=== PATIENT | female | born 1975 | race Caucasian/White ===

== ENCOUNTER 2017-04-17 23:59 | Emergency (ER) | payer MEDICAID, OTHER ==
[2017-04-18] MEDS ORDERED: Sodium Chloride 0.9% 1,000 ML IV ONE (02:00)
--- NOTE | 2017-04-18 02:27 | EDM.PDOCBH ---
<Sj Campbell - Last Filed: 04/18/17 02:22> ED HPI GENERAL MEDICAL PROBLEM - General Chief Complaint: Behavioral/Psych Stated Complaint: EVAL Time Seen by Provider: 04/18/17 00:39 Source of Information: Reports: Patient, Other (Friends and neighbors) History Limitations: Reports: Intoxication - History of Present Illness INITIAL COMMENTS - FREE TEXT/NARRATIVE: This lady was brought to the ER by a neighbor and another friend. She has been drinking heavily for a few days and has made multiple threats to kill herself. She said she hates her life and wants to . She has been treated with antidepressants in the past. About 3 weeks ago she cut her left wrist. Previously she tried to strangle herself but that was sometime in the past. The patient would not answer questions about how much she had drunk tonight. She denied using any kind of drugs - Related Data Allergies Allergy/AdvReac Type Severity Reaction Status Date / Time No Known Allergies Allergy Verified 04/18/17 01:01 Home Meds: Home Meds NK [No Known Home Meds] 09/11/15 [History] Past Medical History HEENT History: Reports: Impaired Vision Respiratory History: Reports: Bronchitis, Recurrent Gastrointestinal History: Reports: Colon Polyp, GERD, Hemorrhoids ADJUNCT NURSING FACULTY History: Reports: Polycystic Ovaries, , Therapeutic Neurological History: Reports: Concussion, Headaches, Chronic, Migraines Psychiatric History: Reports: ADD, ADHD, Depression, Psych Hospitalization(s), Suicide Attempt, Suicidal Ideation, Other (See Below) Other Psychiatric History: nanic depressive, family hx of schizophrenia - Past Surgical History HEENT Surgical History: Reports: Adenoidectomy, Oral Surgery, Tonsillectomy GI Surgical History: Reports: Appendectomy Female Surgical History: Reports: Tubal Ligation Musculoskeletal Surgical History: Reports: Carpal Tunnel Social & Family History - Tobacco Use Smoking Status *Q: Current Every Day Smoker Years of Tobacco use: 22 Packs/Tins Daily: 1.5 Used Tobacco, but Quit: No Second Hand Smoke Exposure: Yes - Caffeine Use Caffeine Use: Reports: Soda - Alcohol Use Days Per Week of Alcohol Use: 6 Number of Drinks Per Day: 8 Total Drinks Per Week: 48 - Recreational Drug Use Recreational Drug Use: No Recreational Drug Type: Reports: Marijuana/Hashish ED ROS GENERAL - Review of Systems Review Of Systems: Unable To Obtain ED EXAM, BEHAVIORAL HEALTH - Physical Exam Exam: See Below Exam Limited By: Intoxication General Appearance: Alert, Other (This lady seems very intoxicated. At times she is crying loudly at other times she is cursing. There is a heavy alcohol odor) Eye Exam: Bilateral Eye: Conjunctival Injection, EOMI, PERRL Throat/Mouth: Normal Inspection Head: Atraumatic Neck: Normal Inspection Respiratory/Chest: Lungs Clear Cardiovascular: Regular Rate, Rhythm GI/Abdominal: Non-Tender Extremities: Other (There is a small laceration approximately 2.5 cm long to the ventral surface of the left wrist. It appears consistent with a history of slitting her wrist 3 weeks ago) Neurological: Alert (But very intoxicated.), CN II-XII Intact, No Motor/Sensory Deficits Psychiatric: Other Skin Exam: Warm (As above), Dry COURSE, BEHAVIORAL HEALTH COMP - Course Vital Signs: Last Vital Signs Temp 97.5 F 04/18/17 03:48 Pulse 94 04/18/17 11:08 Resp 16 04/18/17 11:08 BP 122/68 04/18/17 11:08 Pulse Ox 97 04/18/17 11:08 Orders, Labs, Meds: Laboratory Tests 04/18/17 04/18/17 04/18/17 Range/Units 00:21 00:21 00:21 WBC 10.3 (4.5-11.0) K/uL RBC 4.93 (3.30-5.50) M/uL Hgb 15.2 H D (12.0-15.0) g/dL Hct 44.0 (36.0-48.0) % MCV 89 (80-98) fL MCH 31 (27-31) pg MCHC 35 (32-36) % Plt Count 309 (150-400) K/uL Neut % (Auto) 69 H (36-66) % Lymph % (Auto) 20 L (24-44) % Emmet % (Auto) 10 H (2-6) % Eos % (Auto) 1 L (2-4) % Baso % (Auto) 0 (0-1) % Sodium 136 L (140-148) mmol/L Potassium 3.8 (3.6-5.2) mmol/L Chloride 100 (100-108) mmol/L Carbon Dioxide 26 (21-32) mmol/L Anion Gap 13.8 (5.0-14.0) mmol/L BUN 9 (7-18) mg/dL Creatinine 0.6 (0.6-1.0) mg/dL Est Cr Clr Drug Dosing 89.53 mL/min Estimated GFR (MDRD) > 60 (>60) Glucose 96 (74-106) mg/dL Calcium 8.8 (8.5-10.1) mg/dL Total Bilirubin 0.2 (0.2-1.0) mg/dL AST 21 (15-37) U/L ALT 32 (12-78) U/L Alkaline Phosphatase 162 H (46-116) U/L Total Protein 7.0 (6.4-8.2) g/dL Albumin 3.7 (3.4-5.0) g/dL Globulin 3.3 (2.3-3.5) g/dL Albumin/Globulin Ratio 1.1 L (1.2-2.2) Salicylates (2.0-20.0) mg/dL Urine Opiates Screen (NEGATIVE) Ur Oxycodone Screen (NEGATIVE) Urine Methadone Screen (NEGATIVE) Ur Propoxyphene Screen (NEGATIVE) Acetaminophen (10.0-30.0) ug/mL Ur Barbiturates Screen (NEGATIVE) Ur Tricyclics Screen (NEGATIVE) Ur Phencyclidine Scrn (NEGATIVE) Ur Amphetamine Screen (NEGATIVE) U Methamphetamines Scrn (NEGATIVE) Urine MDMA Screen (NEGATIVE) U Benzodiazepines Scrn (NEGATIVE) U Cocaine Metab Screen (NEGATIVE) U Marijuana (THC) Screen (NEGATIVE) Ethyl Alcohol 190 mg/dL 04/18/17 04/18/17 04/18/17 Range/Units 00:21 00:21 00:26 WBC (4.5-11.0) K/uL RBC (3.30-5.50) M/uL Hgb (12.0-15.0) g/dL Hct (36.0-48.0) % MCV (80-98) fL MCH (27-31) pg MCHC (32-36) % Plt Count (150-400) K/uL Neut % (Auto) (36-66) % Lymph % (Auto) (24-44) % Emmet % (Auto) (2-6) % Eos % (Auto) (2-4) % Baso % (Auto) (0-1) % Sodium (140-148) mmol/L Potassium (3.6-5.2) mmol/L Chloride (100-108) mmol/L Carbon Dioxide (21-32) mmol/L Anion Gap (5.0-14.0) mmol/L BUN (7-18) mg/dL Creatinine (0.6-1.0) mg/dL Est Cr Clr Drug Dosing mL/min Estimated GFR (MDRD) (>60) Glucose (74-106) mg/dL Calcium (8.5-10.1) mg/dL Total Bilirubin (0.2-1.0) mg/dL AST (15-37) U/L ALT (12-78) U/L Alkaline Phosphatase (46-116) U/L Total Protein (6.4-8.2) g/dL Albumin (3.4-5.0) g/dL Globulin (2.3-3.5) g/dL Albumin/Globulin Ratio (1.2-2.2) Salicylates 6.6 (2.0-20.0) mg/dL Urine Opiates Screen Negative (NEGATIVE) Ur Oxycodone Screen Negative (NEGATIVE) Urine Methadone Screen Negative (NEGATIVE) Ur Propoxyphene Screen Negative (NEGATIVE) Acetaminophen 0.0 L (10.0-30.0) ug/mL Ur Barbiturates Screen Negative (NEGATIVE) Ur Tricyclics Screen Negative (NEGATIVE) Ur Phencyclidine Scrn Negative (NEGATIVE) Ur Amphetamine Screen Negative (NEGATIVE) U Methamphetamines Scrn Negative (NEGATIVE) Urine MDMA Screen Negative (NEGATIVE) U Benzodiazepines Scrn Negative (NEGATIVE) U Cocaine Metab Screen Negative (NEGATIVE) U Marijuana (THC) Screen Negative (NEGATIVE) Ethyl Alcohol mg/dL Medications Discontinued Medications Generic Name Dose Route Start Last Admin Trade Name Freq PRN Reason Stop Dose Admin Sodium Chloride 1,000 mls @ 999 mls/hr 04/18/17 02:00 04/18/17 02:00 Normal Saline IV 04/18/17 03:00 999 mls/hr .BOLUS ONE Administration Re-Assessment/Re-Exam: This patient said several times that she wanted to kill herself though she didn' t describe how she was planning to do it. This lady is quite intoxicated right now. Since she is at risk of leaving the emergency department at any time and this would be detrimental to her I have gone ahead and written a 72 hour hold to ensure that she can be kept here until in the morning when she florecita up and she can be evaluated by a member of the crisis team Departure - Departure Disposition: Home, Self-Care 01 Clinical Impression: Depressive disorder, Alcohol abuse - Discharge Information Instructions: Alcohol Use Disorder Referrals: PCP,None [Primary Care Provider] - Forms: ED Department Discharge Care Plan Goals: Avoid alcohol use especially in the near future. Continue your current medications and get your psychiatric help as planned. Return to ER if worsening or concerns. <Sebastián Yeager - Last Filed: 04/19/17 08:17> COURSE, BEHAVIORAL HEALTH COMP - Course Re-Assessment/Re-Exam: 10:08 AM Patient woke up. She admits she is drinking almost daily. She is also having trouble with waiting for her response to her medications. She now is unsure if she would hurt yourself but she is frustrated that the medications don't seem to be working. She was offered detox at [facility]. She is going to discuss this with her family and friend. 4:07 PM Patient declined detox but wanted psychiatric help. The crisis intervention line was called, and metal finish inspector came and spent a good amount of time with the patient and they worked out a plan. She is going to have a follow-up appointment in 2 days. She denies any intent on self-harm and signed to treatment plan. Her friends went to the department and removed the alcohol. Departure - Departure Time of Disposition: 16:28 Condition: Fair
[2017-04-18 11:08] VITALS: BP 122/68
== END 2017-04-18 16:28 | disposition home or self-care (01) ==
LOC: JP.ED 23:59
DX: F32.9 Major depressive disorder, single episode, unspecified (principal); F10.120 Alcohol abuse with intoxication, uncomplicated; S61.512A Laceration without foreign body of left wrist, initial encounter; F17.210 Nicotine dependence, cigarettes, uncomplicated; X78.9XXA Intentional self-harm by unspecified sharp object, initial encounter
CPT/HCPCS: 36415; 80053; 80305; 85025; 96360; 99285; G0480; J7040

== ENCOUNTER 2017-05-22 15:08 | Emergency (ER) | payer OTHER ==
[2017-05-22 15:30] VITALS: BP 114/59
--- NOTE | 2017-05-22 15:42 | EDM.PDOC ---
ED HPI GENERAL MEDICAL PROBLEM - General Chief Complaint: Neck Problem Stated Complaint: NECK/UPPER BACK PAIN & SWELLING Time Seen by Provider: 05/22/17 15:35 Source of Information: Reports: Patient, Family, RN Notes Reviewed History Limitations: Reports: No Limitations - History of Present Illness INITIAL COMMENTS - FREE TEXT/NARRATIVE: 42-year-old female presents emergency department day complaint of neck pain, she states she slipped on her neck wrong about 3 days ago has had neck stiffness has sought out behavioral health care manager with some relief she is seeking muscle relaxants no fevers no nausea vomiting no difficulty with arm movements Neck Pain Score (Numeric/FACES): 5 - Related Data Allergies Allergy/AdvReac Type Severity Reaction Status Date / Time No Known Allergies Allergy Verified 04/18/17 01:01 Home Meds: Home Meds NK [No Known Home Meds] 09/11/15 [History] Past Medical History HEENT History: Reports: Impaired Vision Respiratory History: Reports: Bronchitis, Recurrent Gastrointestinal History: Reports: Colon Polyp, GERD, Hemorrhoids PALM AND BACK 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 History: Reports: Polycystic Ovaries, , Therapeutic Neurological History: Reports: Concussion, Headaches, Chronic, Migraines Psychiatric History: Reports: ADD, ADHD, Depression, Psych Hospitalization(s), Suicide Attempt, Suicidal Ideation, Other (See Below) Other Psychiatric History: nanic depressive, family hx of schizophrenia - Infectious Disease History Infectious Disease History: Reports: Chicken Pox - Past Surgical History HEENT Surgical History: Reports: Adenoidectomy, Oral Surgery, Tonsillectomy GI Surgical History: Reports: Appendectomy Female Surgical History: Reports: Tubal Ligation Musculoskeletal Surgical History: Reports: Carpal Tunnel Dermatological Surgical History: Reports: None Social & Family History - Tobacco Use Smoking Status *Q: Current Every Day Smoker Years of Tobacco use: 22 Packs/Tins Daily: 1.5 Used Tobacco, but Quit: No Second Hand Smoke Exposure: Yes - Caffeine Use Caffeine Use: Reports: Soda - Alcohol Use Days Per Week of Alcohol Use: 6 Number of Drinks Per Day: 8 Total Drinks Per Week: 48 - Recreational Drug Use Recreational Drug Use: No Recreational Drug Type: Reports: Marijuana/Hashish ED ROS GENERAL - Review of Systems Review Of Systems: See Below Constitutional: Reports: No Symptoms Musculoskeletal: Reports: Neck Pain Skin: Reports: No Symptoms Neurological: Reports: No Symptoms ED EXAM, UPPER BACK/NECK PAIN - Physical Exam Exam: See Below Text/Narrative:: Examination of the neck, I don't appreciate any point tenderness spinally or paraspinally she has limited range of motion of the neck secondary to pain there is no cervical lymphadenopathy no erythema noted full range of motion upper extremities Exam Limited By: No Limitations General Appearance: Alert, WD/WN, No Apparent Distress Course - Vital Signs Last Recorded V/S: Last Vital Signs Temp 96.9 F 05/22/17 15:20 Pulse 85 05/22/17 15:20 Resp 16 05/22/17 15:20 BP 114/59 L 05/22/17 15:20 Pulse Ox 99 05/22/17 15:20 Departure - Departure Time of Disposition: 15:41 Disposition: Home, Self-Care 01 Condition: Good Clinical Impression: Neck muscle strain Qualifiers: Encounter type: initial encounter Qualified Code(s): S16.1XXA - Strain of muscle, fascia and tendon at neck level, initial encounter - Discharge Information Referrals: Marcy Acuna PA [Primary Care Provider] - Additional Instructions: Continue to use ibuprofen for baseline pain control, use Flexeril as needed for muscle spasms, Please followup with your primary care provider in 3-5 days if not better, please call return to the emergency department with worsening of symptoms. - Assessment/Plan Plan: Assessment Acuity = acute Site and laterality = neck strain Etiology = secondary to sleeping position Manifestations = pain Location of injury = Home Lab values = none Plan Prescription written for Flexeril 1 tablet by mouth 3 times a day when necessary total #15 follow-up with primary care in 3-5 days if not better Patient was in agreement with the plan all questions were answered, they were instructed to return to the emergency department or call for worsening symptoms. This note was dictated using [employer] voice recognition software please call with any questions.
== END 2017-05-22 15:51 | disposition home or self-care (01) ==
LOC: JP.ED 15:08
DX: S16.1XXA Strain of muscle, fascia and tendon at neck level, initial encounter (principal); F17.210 Nicotine dependence, cigarettes, uncomplicated; W01.0XXA Fall on same level from slipping, tripping and stumbling without subsequent striking against object, initial encounter
CPT/HCPCS: 99283

== ENCOUNTER 2018-12-01 21:56 | Emergency (ER) | payer MEDICAID, OTHER ==
[2018-12-01 22:57] VITALS: BP 112/48
--- NOTE | 2018-12-02 01:20 | EDM.PDOC ---
ED HPI GENERAL MEDICAL PROBLEM - General Chief Complaint: Genitourinary Problem Stated Complaint: ILLNESS Time Seen by Provider: 12/01/18 23:59 Source of Information: Reports: Patient History Limitations: Reports: No Limitations - History of Present Illness INITIAL COMMENTS - FREE TEXT/NARRATIVE: This patient comes in because of swelling in the vaginal area for the past 3 days. She wants to be tested for STDs. She took some kind of an antibiotic today. She said in the past she had some kind of a cyst in the area anterior to this. She never had a periurethral abscess. Vaginal Pain Score (Numeric/FACES): 8 - Related Data Allergies Allergy/AdvReac Type Severity Reaction Status Date / Time No Known Allergies Allergy Verified 12/01/18 22:58 Home Meds: Home Meds NK [No Known Home Meds] 09/11/15 [History] Past Medical History HEENT History: Reports: Impaired Vision Respiratory History: Reports: Bronchitis, Recurrent Gastrointestinal History: Reports: Colon Polyp, GERD, Hemorrhoids MANAGER MANAGING History: Reports: Polycystic Ovaries, , Therapeutic Neurological History: Reports: Concussion, Headaches, Chronic, Migraines Psychiatric History: Reports: ADD, ADHD, Depression, Psych Hospitalization(s), Suicide Attempt, Suicidal Ideation, Other (See Below) Other Psychiatric History: nanic depressive, family hx of schizophrenia - Infectious Disease History Infectious Disease History: Reports: Chicken Pox - Past Surgical History HEENT Surgical History: Reports: Adenoidectomy, Oral Surgery, Tonsillectomy GI Surgical History: Reports: Appendectomy Female Surgical History: Reports: Tubal Ligation Musculoskeletal Surgical History: Reports: Carpal Tunnel Social & Family History - Tobacco Use Smoking Status *Q: Current Every Day Smoker Years of Tobacco use: 25 Packs/Tins Daily: 1 Used Tobacco, but Quit: No Second Hand Smoke Exposure: No - Caffeine Use Caffeine Use: Reports: Soda - Recreational Drug Use Recreational Drug Use: No ED ROS GENERAL - Review of Systems Review Of Systems: ROS reveals no pertinent complaints other than HPI. ED EXAM, RENAL/ - Physical Exam Exam: See Below Exam Limited By: No Limitations General Appearance: Alert, WD/WN, Mild Distress (Female) Exam: Other (There is a thin white vaginal discharge. There is a tender lump just to the patient's left side of the urethra approximately 1.1 cm to 1.5 cm in diameter. It's exquisitely tender seems like an abscess. Cervix appears to be normal. There are no vaginal lesions.) Course - Vital Signs Last Recorded V/S: Last Vital Signs Temp 35.7 C 12/01/18 23:14 Pulse 99 12/01/18 23:14 Resp 16 12/01/18 23:14 BP 112/48 L 12/01/18 23:14 Pulse Ox 97 12/01/18 23:14 - Orders/Labs/Meds Orders: Active Orders 24 hr Category Date Time Status CHLAMYDIA/GC AMPLIFICATION Routine Lab 12/02/18 01:00 Received Labs: Laboratory Tests 12/02/18 Range/Units 00:01 Urine Color Yellow Urine Appearance Slightly cloudy Urine pH 5.0 (4.5-8.0) Ur Specific [place] 1.020 (1.008-1.030) Urine Protein Negative (NEGATIVE) mg/dL Urine Glucose (UA) Normal (NEGATIVE) mg/dL Urine Ketones Negative (NEGATIVE) mg/dL Urine Occult Blood Negative (NEGATIVE) Urine Nitrite Negative (NEGATIVE) Urine Bilirubin Negative (NEGATIVE) Urine Urobilinogen Normal (NORMAL) mg/dL Ur Leukocyte Esterase Trace (NEGATIVE) Urine RBC 0-5 (0-5) Urine WBC 0-5 (0-5) Ur Epithelial Cells Many Amorphous Sediment Moderate Urine Bacteria Few Urine Mucus Few - Re-Assessments/Exams Free Text/Narrative Re-Assessment/Exam: 12/02/18 01:23 I spoke with MANAGER MANAGING fire prevention officer in [place] Dr. Plasencia and he recommended Bactrim and follow-up in clinic on Tuesday Departure - Departure Time of Disposition: 19 Disposition: Home, Self-Care 01 Condition: Fair Clinical Impression: Periurethral abscess - Discharge Information Referrals: PCP,None [Primary Care Provider] - Forms: ED Department Discharge Additional Instructions: Take Bactrim DS one tablet twice daily for 5 days. Follow-up in [facility] clinic in [place] on Tuesday. I spoke with Dr. Holbrook. He should call the clinic first thing Tuesday morning. - My Orders Last 24 Hours: My Active Orders 12/02/18 01:00 CHLAMYDIA/GC AMPLIFICATION Routine - Assessment/Plan Last 24 Hours: My Active Orders 12/02/18 01:00 CHLAMYDIA/GC AMPLIFICATION Routine
== END 2018-12-02 01:30 | disposition home or self-care (01) ==
LOC: JP.ED 21:56
DX: N34.0 Urethral abscess (principal); F17.210 Nicotine dependence, cigarettes, uncomplicated; K21.9 Gastro-esophageal reflux disease without esophagitis
CPT/HCPCS: 81001; 87210; 87491; 87591; 99283

== ENCOUNTER 2020-12-16 13:30 | Emergency (ER) | payer MEDICAID, OTHER ==
--- NOTE | 2020-12-16 14:05 | EDM.PDOC ---
<Arielle Cheung - Last Filed: 12/16/20 15:58> ED HPI GENERAL MEDICAL PROBLEM - General Chief Complaint: Respiratory Problem Stated Complaint: TROUBLE BREATHING Time Seen by Provider: 12/16/20 13:50 Source of Information: Reports: Patient, Other History Limitations: Reports: No Limitations - History of Present Illness INITIAL COMMENTS - FREE TEXT/NARRATIVE: 45 year old female with history of alcohol use arrives via triage with complaints of chest pain and shortness of breath. She reports that she woke with these symptoms this AM. Her chest pain is center to left chest with associated shortness of breath and the feeling that she cannot "take a deep breath". She reports that she is having finger tip tingling but has been hyperventilating for some time. Does not report any visual, auditory hallucinations, or other symptoms of withdrawal. She denies recent fevers, illness, or exposures. Denies hx of covid or receiving the vaccine. Reports that her last use of alcohol was last night. Denies abdominal pain, nausea or vomiting. Onset: Today Onset Date: 12/16/20 Duration: Hour(s): Location: Reports: Chest, Other (shortness of breath and left and center chest pain) Quality: Reports: Other (sharp, tight, and intermittant) Severity: Severe Improves with: Reports: None Worsens with: Reports: Breathing, Movement Context: Reports: Activity Associated Symptoms: Reports: Chest Pain, Cough, Shortness of Breath. 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: Reports: Polycystic Ovaries, , Therapeutic Neurological History: Reports: Concussion, Headaches, Chronic, Migraines Psychiatric History: Reports: ADD, ADHD, Depression, Psych Hospitalization(s), Suicide Attempt, Suicidal Ideation, Other (See Below) Other Psychiatric History: nanic depressive, family hx of schizophrenia - Infectious Disease History Infectious Disease History: Reports: Chicken Pox - Past Surgical History HEENT Surgical History: Reports: Adenoidectomy, Oral Surgery, Tonsillectomy Respiratory Surgical History: Reports: None GI Surgical History: Reports: Appendectomy Female Surgical History: Reports: Tubal Ligation Neurological Surgical History: Reports: None Musculoskeletal Surgical History: Reports: Carpal Tunnel Other Musculoskeletal Surgeries/Procedures:: bilateral CTR Dermatological Surgical History: Reports: None Social & Family History - Tobacco Use Tobacco Use Status *Q: Current Every Day Tobacco User Years of Tobacco use: 30 Packs/Tins Daily: 1 - Caffeine Use Caffeine Use: Reports: None Caffeine Use Comment: quit a few weeks ago - Recreational Drug Use Recreational Drug Type: Reports: Marijuana/Hashish ED ROS GENERAL - Review of Systems Review Of Systems: See Below Constitutional: Reports: No Symptoms. Denies: Fever, Chills, Malaise, Weakness, Diaphoresis HEENT: Reports: No Symptoms Respiratory: Reports: Shortness of Breath, Cough Cardiovascular: Reports: Chest Pain. Denies: Edema, Lightheadedness, Palpitations Endocrine: Reports: No Symptoms GI/Abdominal: Denies: Abdominal Pain, Black Stool, Bloody Stool, Constipation, Diarrhea : Reports: No Symptoms Musculoskeletal: Reports: No Symptoms Skin: Reports: No Symptoms. Denies: Diaphoresis, Rash Neurological: Reports: No Symptoms. Denies: Confusion, Dizziness, Headache, Difficulty Walking, Weakness Psychiatric: Reports: Anxiety Hematologic/Lymphatic: Reports: No Symptoms Immunologic: Reports: No Symptoms ED EXAM, GENERAL - Physical Exam Exam: See Below Free Text/Narrative:: Patient resting on the cart bracing herself with bilateral arms on side rails of bed, she is tremulous and dyspneic without hypoxia. She is taking shallow rapid breaths and reports pain as evidence by grimacing with deep inspiration. Abdominal tenderness to left upper quadrant with palpation but all other quadrant are soft and non tender. No rash, edema, or evidence of injuries. Alert and oriented. skin is warm and dry. upper body tremors present without tachycardia or hypertension. She is alert and oriented. skin is warm and dry. Exam Limited By: No Limitations General Appearance: Alert, Mild Distress Ears: Normal External Exam Nose: Normal Inspection, No Blood Throat/Mouth: Normal Inspection, No Airway Compromise Head: Atraumatic Neck: Normal Inspection, Non-Tender, Full Range of Motion Respiratory/Chest: Lungs Clear. No: Crackles, Wheezing Cardiovascular: Normal Peripheral Pulses, No Edema GI/Abdominal: Soft, Other (tenderness to left upper quadrent with palpation) Back Exam: Normal Inspection, Full Range of Motion Extremities: Normal Inspection, Normal Range of Motion. No: Pedal Edema Neurological: Alert, Oriented, Normal Cognition, Normal Gait Psychiatric: Anxious Skin Exam: Warm, Dry, Intact Lymphatic: No Adenopathy Course - Vital Signs Text/Narrative:: EKG, Chest xray, CBC, CMP, Troponin, Lipase, and Ethanol ordered. patient agrees with plan of care at this time. Departure - Departure Time of Disposition: 15:22 Disposition: Home, Self-Care 01 Condition: Good Clinical Impression: Pleuritic pain - Discharge Information Instructions: Pleurisy, [id number] Referrals: PCP,None [Primary Care Provider] - Forms: ED Department Discharge Care Plan Goals: Your chest xray came back normal today. Your blood work did not show any signs of infection, heart damage, or electrolyte abnormalities. Your Alkaline phosphatase lab, which is a liver function test came back elevated. This can be caused due to drinking alcohol consistently. Please try to decrease or stop your intake of alcohol. Prescription for an antiinflammatory pain medication- Toradol was sent for you. You can use this for your pleuritic chest pain for the next couple days. You might want to take an antacid along with this medication and some food because it can cause irritation to the gastric lining of the stomach. Please return to the ER if you have any new or worsening shortness of breath or chest pain, fever, or other concerning symptoms. Sepsis Event Note (ED) - Evaluation Sepsis Screening Result: No Definite Risk <Sebastián Yeager - Last Filed: 12/16/20 17:27> Course - Vital Signs Last Recorded V/S: Last Vital Signs Temp 97.8 F 12/16/20 13:40 Pulse 70 12/16/20 15:18 Resp 16 12/16/20 15:18 BP 119/66 12/16/20 15:18 Pulse Ox 96 12/16/20 15:18 - Orders/Labs/Meds Orders: Active Orders 24 hr Category Date Time Status EKG 12 Lead [EK] Stat Ther 12/16/20 13:58 Ordered Labs: Laboratory Tests 12/16/20 12/16/20 12/16/20 Range/Units 14:10 14:10 14:10 WBC 5.9 (4.5-11.0) K/uL RBC 5.18 (3.30-5.50) M/uL Hgb 17.0 H (12.0-15.0) g/dL Hct 48.8 H (36.0-48.0) % MCV 94 (80-98) fL MCH 33 H (27-31) pg MCHC 35 (32-36) % Plt Count 291 (150-400) K/uL Neut % (Auto) 59.6 (36-66) % Lymph % (Auto) 23.1 L (24-44) % H[place] % (Auto) 14.7 H (2-6) % Eos % (Auto) 1.4 L (2-4) % Baso % (Auto) 1.2 H (0-1) % Sodium 142 (140-148) mmol/L Potassium 4.1 (3.6-5.2) mmol/L Chloride 105 (100-108) mmol/L Carbon Dioxide 24 (21-32) mmol/L Anion Gap 12.8 (5.0-14.0) mmol/L BUN 8 (7-18) mg/dL Creatinine 0.7 (0.6-1.0) mg/dL Est Cr Clr Drug Dosing 74.43 mL/min Estimated GFR (MDRD) > 60 (>60) Glucose 91 (74-106) mg/dL Calcium 8.5 (8.5-10.1) mg/dL Total Bilirubin 0.4 D (0.2-1.0) mg/dL AST 30 (15-37) U/L ALT 50 (12-78) U/L Alkaline Phosphatase 130 H (46-116) U/L Troponin I < 0.017 (0.000-0.056) ng/mL Total Protein 6.5 (6.4-8.2) g/dL Albumin 3.5 (3.4-5.0) g/dL Globulin 3.0 (2.3-3.5) g/dL Albumin/Globulin Ratio 1.2 (1.2-2.2) Lipase 105 (73-393) U/L Ethyl Alcohol < 3 mg/dL Meds: Medications Discontinued Medications Generic Name Dose Route Start Last Admin Trade Name Freq PRN Reason Stop Dose Admin Ketorolac Tromethamine 30 mg 12/16/20 15:05 12/16/20 15:15 Ketorolac 30 Mg/Ml Sdv IM 12/16/20 15:06 30 mg ONETIME ONE Administration Sepsis Event Note (ED) - Focused Exam Vital Signs: Vital Signs Temp Pulse Resp BP Pulse Ox 12/16/20 15:18 70 16 119/66 96 12/16/20 14:19 77 14 121/63 97 12/16/20 14:02 74 17 115/59 L 98 12/16/20 13:40 97.8 F 106 H 20 137/99 H 98 12/16/20 13:36 97.8 F 106 H 20 137/99 H 98 Attestation - Student - Attestation Statement Attestation Statement: I personally performed or re-performed the physical examination and medical decision making. I have verified all student documentation or findings, including history, physical exam and/or medical decision making.
--- NOTE | 2020-12-16 14:22 | CR ---
CHEST: 2 view CLINICAL HISTORY:SOB COMPARISON:2009 FINDINGS: The heart size, pulmonary vascularity and hilar structures are normal. No infiltrate effusion or pneumothorax is seen. IMPRESSION: No acute cardiopulmonary process.
[2020-12-16] MEDS: Ketorolac 30 MG/ML SDV IM ONE (15:15)
[2020-12-16 15:19] VITALS: BP 119/66; PULSE 70
== END 2020-12-16 15:22 | disposition home or self-care (01) ==
LOC: JP.ED 13:30
DX: R07.81 Pleurodynia (principal); Z72.0 Tobacco use
CPT/HCPCS: 36415; 71046; 71046-26; 80053; 80307; 83690; 84484; 85025; 93005; 96372; 99285-25; J1885

== ENCOUNTER 2021-12-08 02:14 | Emergency (ER) | payer MEDICAID, OTHER ==
[2021-12-08 02:37] VITALS: BP 117/80; PULSE 103
[2021-12-08] MEDS ORDERED: methylPREDNISolone Sodium Succinate 125 MG/2 ML SDV IM ONE (02:39)
== END 2021-12-08 03:00 | disposition home or self-care (01) ==
LOC: JP.ED 02:14
DX: L55.0 Sunburn of first degree (principal); F17.210 Nicotine dependence, cigarettes, uncomplicated
CPT/HCPCS: 96372; 99282; J2930

== ENCOUNTER 2022-06-27 15:34 | Emergency (ER) | payer OTHER, MEDICAID ==
[2022-06-27] MEDS ORDERED: Aspirin 81 MG Tab.Chew PO ONE (15:58)
[2022-06-27 16:14] LABS: ESTIMATED GFR 113 mL/min (>60); TROPONIN I HIGH SENSITIVITY 6.8 pg/mL (<=60.3)
[2022-06-27] MEDS ORDERED: Ketorolac 30 MG/ML SDV IM ONE (16:41)
[2022-06-27] MEDS ORDERED: Ketorolac 30 MG/ML SDV IVPUSH ONE (16:47)
[2022-06-27 17:09] VITALS: BP 154/55; PULSE 82
== END 2022-06-27 17:32 | disposition home or self-care (01) ==
LOC: JP.ED 15:34
DX: R04.0 Epistaxis (principal)
CPT/HCPCS: 36415; 70450; 80053; 80307; 83605; 84484; 85025; 93005; 96374; 99285; A9270; J1885; 93010; 99283

== ENCOUNTER 2022-11-29 08:31 | Day surgery (SDC) | payer OTHER, MEDICAID ==
[~2022-11-29 08:31] MED LIST: Midazolam 1 MG/ML 2 ML SDV ONE; Propofol 200 MG/20 ML SDV ONE; fentaNYL 50 MCG/ML SDV ONE
[2022-11-29] MEDS ORDERED: Lactated Ringers 1,000 ML IV SCH (09:00)
[2022-11-29] MEDS ORDERED: Propofol 200 MG/20 ML SDV ONE (09:58)
[2022-11-29 11:14] VITALS: BP 109/66; PULSE 74
== END 2022-11-29 11:28 | disposition home or self-care (01) ==
LOC: JP.SDS 08:31
PROVIDERS: ATTEND Student in an Organized Health Care Education/Training Program
DX: Z12.11 Encounter for screening for malignant neoplasm of colon (principal); E78.5 Hyperlipidemia, unspecified; F17.200 Nicotine dependence, unspecified, uncomplicated; F41.9 Anxiety disorder, unspecified; F90.9 Attention-deficit hyperactivity disorder, unspecified type; Z86.010 Personal history of colon polyps; Z79.899 Other long term (current) drug therapy
CPT/HCPCS: 45380; J2250; J2704; J3010; J7120; 88305

== ENCOUNTER 2023-10-25 02:24 | Observation (INO) | payer MEDICAID, OTHER ==
[2023-10-25 03:10] LABS: BASOPHILS ABSOLUTE AUTO 0.05 K/uL (0.00-0.10); BASOPHILS PERCENT AUTO 0.8 % (0.1-1.3); EOSINOPHILS ABSOLUTE AUTO 0.11 K/uL (0.00-0.40); EOSINOPHILS PERCENT AUTO 1.8 % (0.0-5.4); HEMATOCRIT 44.6 % (34.3-46.0); IMMATURE GRAN ABSOLUTE AUTO 0.04 K/uL (0.00-0.23); IMMATURE GRAN PERCENT AUTO 0.7 % (0.0-0.7); LYMPHOCYTES ABSOLUTE AUTO 1.95 K/uL (0.8-3.3); LYMPHOCYTES PERCENT AUTO 31.7 % (11.4-47.7); MEAN CORPUSCULAR HEMOGLOBIN 33.8 pg (31.6-35.5); MEAN CORPUSCULAR HGB CONC 35.9 g/dL (31.6-35.5); MEAN CORPUSCULAR VOLUME 94.1 fL (81.4-99.0); MONOCYTES ABSOLUTE AUTO 0.79 K/uL (0.20-0.90); MONOCYTES PERCENT AUTO 12.8 % (3.3-12.6); NEUTROPHILS ABSOLUTE AUTO 3.21 K/uL (1.0-7.6); NEUTROPHILS PERCENT AUTO 52.2 % (40.0-78.1); PLATELET COUNT,PLT 242 K/uL (130-375); RED BLOOD CELL COUNT 4.74 M/uL (3.77-5.24); WHITE BLOOD CELL COUNT,WBC 6.2 K/uL (3.2-11.0)
[2023-10-25] MEDS: Sodium Chloride 0.9% 80 ML IV STA (03:25)
[2023-10-25] MEDS: Iopamidol 612 MG/ML 100 ML Bottle IV STA (03:25)
[2023-10-25 03:33] LABS: ALANINE AMINOTRANSFERASE,ALT 89 U/L (12-78); ALBUMIN 3.8 g/dL (3.4-5.0); ALKALINE PHOSPHATASE 166 U/L (46-116); ANION GAP 13.4 mmol/L (5.0-14.0); ASPARTATE AMNIOTRANSFERASE,AST 52 U/L (15-37); BILIRUBIN TOTAL 0.3 mg/dL (0.2-1.0); BLOOD UREA NITROGEN,BUN 6 mg/dL (7-18); CARBON DIOXIDE,CO2 28 mmol/L (21-32); CHLORIDE,CL 98 mmol/L (100-108); CREATININE 0.7 mg/dL (0.6-1.0); EST CRCL DRUG DOSING (CG) 72.13 mL/min; ESTIMATED GFR 108 mL/min (>60); GLUCOSE RANDOM 117 mg/dL (74-106); POTASSIUM,K 3.4 mmol/L (3.6-5.2); PROTEIN TOTAL,TP 7.5 g/dL (6.4-8.2); SODIUM,NA 136 mmol/L (140-148)
[2023-10-25] MEDS: Alum Hydrox/Mag Hydrox/Simeth 15 ML, Lidocaine 2% 15 ML PO ONE (03:49)
[2023-10-25] MEDS: Iopamidol 612 MG/ML 30 ML SDV PO STA (04:37)
[2023-10-25] MEDS: Sodium Chloride 0.9% 1,000 ML IV SCH (06:44)
[2023-10-25] MEDS ORDERED: fentaNYL 250 MCG/5 ML SDV ONE (07:09)
[2023-10-25] MEDS ORDERED: Ondansetron 4 MG/2 ML SDV ONE (07:10)
[2023-10-25] MEDS ORDERED: Glycopyrrolate 0.2 MG/ML 5 ML MDV ONE (07:10)
[2023-10-25] MEDS ORDERED: Succinylcholine 200 MG/10 ML MDV ONE (07:10)
[2023-10-25] MEDS ORDERED: Propofol 200 MG/20 ML SDV ONE (07:10)
[2023-10-25] MEDS ORDERED: Rocuronium 50 MG/5 ML Vial ONE (07:10)
[2023-10-25] MEDS ORDERED: Dexamethasone 4 MG/ML SDV ONE (07:10)
[2023-10-25] MEDS ORDERED: Neostigmine Methylsulfate 10 MG/10 ML MDV ONE (07:10)
[2023-10-25] MEDS: Heparin Sodium 5,000 Units/ML Vial SUBCUT SCH (07:20)
[2023-10-25] MEDS: cefOXitin 2 GM in Sodium Chloride 0.9% 50 ML IV ONE (07:46)
[2023-10-25] MEDS: HYDROmorphone 0.5 MG/0.5 ML Syringe IVPUSH ONE (07:53)
[2023-10-25] MEDS: Bupivacaine 0.5%/EPINEPHrine 1:200,000 50 ML MDV ONE (07:57)
[2023-10-25] MEDS ORDERED: Sugammadex Sodium 200 MG/2 ML VIAL IV ONE (08:12)
[2023-10-25] MEDS: MVI, Adult with Vitamin K 10 ML, Thiamine 100 MG, Folic Acid 1 MG, Magnesium Sulfate 2 ... IV ONE (09:21)
[2023-10-25] MEDS: Folic Acid 1 MG Tab PO SCH (09:29)
[2023-10-25] MEDS: Thiamine 100 MG Tab PO SCH (09:29)
[2023-10-25] MEDS: chlordiazePOXIDE 25 MG Cap PO SCH (09:29)
[2023-10-25] MEDS: Gabapentin 400 MG Cap PO SCH (09:29)
[2023-10-25] MEDS: Morphine 2 MG/ML SYRINGE IVPUSH PRN (09:31)
[2023-10-25] MEDS: LORazepam 2 MG/ML SDV IV PRN (10:48)
[2023-10-25] MEDS: Ondansetron 4 MG Tab.DIS PO PRN (10:52)
[2023-10-25] MEDS: Acetaminophen/oxyCODONE 325-5 MG Tab PO PRN (14:39)
[2023-10-25] MEDS ORDERED: Nicotine Polacrilex 2 MG Gum CHEW PRN (15:13)
[2023-10-25] MEDS: Nicotine 21 MG/24 Hr Patch TRDERM SCH (17:05)
[2023-10-25] MEDS: LORazepam 1 MG Tab PO PRN (17:07)
[2023-10-25] MEDS: Pantoprazole 40 MG Tab.CR PO SCH (22:38)
[2023-10-25] MEDS: Aluminum Hydroxide/Magnesium Hydroxide/Simethicone Susp 30 ML Cup PO PRN (22:38)
[2023-10-26 05:21] LABS: BASOPHILS ABSOLUTE AUTO 0.02 K/uL (0.00-0.10); BASOPHILS PERCENT AUTO 0.2 % (0.1-1.3); EOSINOPHILS ABSOLUTE AUTO 0.02 K/uL (0.00-0.40); EOSINOPHILS PERCENT AUTO 0.2 % (0.0-5.4); HEMOGLOBIN 13.3 g/dL (11.2-15.5); IMMATURE GRAN ABSOLUTE AUTO 0.04 K/uL (0.00-0.23); IMMATURE GRAN PERCENT AUTO 0.5 % (0.0-0.7); LYMPHOCYTES ABSOLUTE AUTO 1.39 K/uL (0.8-3.3); LYMPHOCYTES PERCENT AUTO 16.9 % (11.4-47.7); MEAN CORPUSCULAR HEMOGLOBIN 33.3 pg (31.6-35.5); MEAN CORPUSCULAR HGB CONC 34.1 g/dL (31.6-35.5); MEAN CORPUSCULAR VOLUME 97.7 fL (81.4-99.0); MONOCYTES ABSOLUTE AUTO 0.71 K/uL (0.20-0.90); MONOCYTES PERCENT AUTO 8.6 % (3.3-12.6); NEUTROPHILS ABSOLUTE AUTO 6.04 K/uL (1.0-7.6); NEUTROPHILS PERCENT AUTO 73.6 % (40.0-78.1); PLATELET COUNT,PLT 213 K/uL (130-375); RED BLOOD CELL COUNT 3.99 M/uL (3.77-5.24); WHITE BLOOD CELL COUNT,WBC 8.2 K/uL (3.2-11.0)
[2023-10-26 05:53] LABS: A/G RATIO 0.9 (1.2-2.2); ALANINE AMINOTRANSFERASE,ALT 62 U/L (12-78); ALBUMIN 2.7 g/dL (3.4-5.0); ALKALINE PHOSPHATASE 135 U/L (46-116); ASPARTATE AMNIOTRANSFERASE,AST 40 U/L (15-37); BILIRUBIN TOTAL 0.4 mg/dL (0.2-1.0); BLOOD UREA NITROGEN,BUN 6 mg/dL (7-18); CALCIUM 7.9 mg/dL (8.5-10.1); CARBON DIOXIDE,CO2 28 mmol/L (21-32); CHLORIDE,CL 104 mmol/L (100-108); CREATININE 0.7 mg/dL (0.6-1.0); EST CRCL DRUG DOSING (CG) 72.13 mL/min; ESTIMATED GFR 108 mL/min (>60); GLUCOSE RANDOM 92 mg/dL (74-106); MAGNESIUM 2.5 mg/dL (1.8-2.4); POTASSIUM,K 3.4 mmol/L (3.6-5.2); PROTEIN TOTAL,TP 5.8 g/dL (6.4-8.2); SODIUM,NA 137 mmol/L (140-148)
[2023-10-26 05:56] LABS: ANION GAP 8.4 mmol/L (5.0-14.0)
[2023-10-26] MEDS: Potassium Chloride 20 MEQ Tab.ER PO ONE (09:06)
[2023-10-26 09:13] VITALS: BP 102/59
[2023-10-26 09:17] VITALS: PULSE 92
[2023-10-26] MEDS ORDERED: Pantoprazole 40 MG Tab.CR PO SCH (21:00)
== END 2023-10-26 10:18 | disposition home or self-care (01) ==
LOC: JP.ED 02:24 → JP.SDS 06:15 → JP.ICU 08:16
PROVIDERS: ADMIT Surgery; ATTEND Surgery
DX: K56.1 Intussusception (principal); K21.9 Gastro-esophageal reflux disease without esophagitis; F32.A Depression, unspecified; F17.210 Nicotine dependence, cigarettes, uncomplicated; Z79.899 Other long term (current) drug therapy
CPT/HCPCS: 36415; 49320; 71045; 74176; 74177; 80053; 80307; 83690; 83735; 84703; 85025; 86850; 86900; 86901; 93010; 96361; 96365; 96372; 99232; 99238; 99285; A9270; J0330; J0694; J1100; J1644; J2060; J2270; J2405; J2704; J2710; J3010; J3411; J3475; J3490; J7030; Q0162; Q9967; 00840-QZ

== ENCOUNTER 2023-10-30 23:19 | Emergency (ER) | payer MEDICAID ==
[2023-10-31 00:42] LABS: BASOPHILS ABSOLUTE AUTO 0.06 K/uL (0.00-0.10); BASOPHILS PERCENT AUTO 0.8 % (0.1-1.3); EOSINOPHILS ABSOLUTE AUTO 0.17 K/uL (0.00-0.40); EOSINOPHILS PERCENT AUTO 2.2 % (0.0-5.4); HEMATOCRIT 43.9 % (34.3-46.0); HEMOGLOBIN 15.9 g/dL (11.2-15.5); IMMATURE GRAN ABSOLUTE AUTO 0.05 K/uL (0.00-0.23); IMMATURE GRAN PERCENT AUTO 0.6 % (0.0-0.7); LYMPHOCYTES ABSOLUTE AUTO 2.41 K/uL (0.8-3.3); LYMPHOCYTES PERCENT AUTO 30.7 % (11.4-47.7); MEAN CORPUSCULAR HEMOGLOBIN 34.4 pg (31.6-35.5); MEAN CORPUSCULAR HGB CONC 36.2 g/dL (31.6-35.5); MONOCYTES PERCENT AUTO 11.5 % (3.3-12.6); NEUTROPHILS ABSOLUTE AUTO 4.25 K/uL (1.0-7.6); NEUTROPHILS PERCENT AUTO 54.2 % (40.0-78.1); PLATELET COUNT,PLT 265 K/uL (130-375); RED BLOOD CELL COUNT 4.62 M/uL (3.77-5.24); WHITE BLOOD CELL COUNT,WBC 7.8 K/uL (3.2-11.0)
[2023-10-31 01:01] LABS: A/G RATIO 0.9 (1.2-2.2); ALANINE AMINOTRANSFERASE,ALT 91 U/L (12-78); ALBUMIN 3.4 g/dL (3.4-5.0); ALKALINE PHOSPHATASE 199 U/L (46-116); ASPARTATE AMNIOTRANSFERASE,AST 74 U/L (15-37); BILIRUBIN TOTAL 0.3 mg/dL (0.2-1.0); BLOOD UREA NITROGEN,BUN 4 mg/dL (7-18); CALCIUM 9.2 mg/dL (8.5-10.1); CARBON DIOXIDE,CO2 30 mmol/L (21-32); CHLORIDE,CL 101 mmol/L (100-108); CREATININE 0.6 mg/dL (0.6-1.0); EST CRCL DRUG DOSING (CG) 84.15 mL/min; ESTIMATED GFR 112 mL/min (>60); GLUCOSE RANDOM 106 mg/dL (74-106); POTASSIUM,K 3.7 mmol/L (3.6-5.2); PROTEIN TOTAL,TP 7.4 g/dL (6.4-8.2); SODIUM,NA 139 mmol/L (140-148)
[2023-10-31 01:05] LABS: ANION GAP 11.7 mmol/L (5.0-14.0)
[2023-10-31] MEDS: Ondansetron 4 MG Tab.DIS PO ONE (01:28)
[2023-10-31] MEDS: Ketorolac 10 MG Tab PO ONE (02:12)
[2023-10-31 02:58] VITALS: BP 109/63; PULSE 97
== END 2023-10-31 02:35 | disposition home or self-care (01) ==
LOC: JP.ED 23:19
DX: G89.18 Other acute postprocedural pain (principal); R10.9 Unspecified abdominal pain; F10.120 Alcohol abuse with intoxication, uncomplicated; K21.9 Gastro-esophageal reflux disease without esophagitis; F17.210 Nicotine dependence, cigarettes, uncomplicated; Z79.899 Other long term (current) drug therapy; Z53.31 Laparoscopic surgical procedure converted to open procedure; Z79.51 Long term (current) use of inhaled steroids; Y90.9 Presence of alcohol in blood, level not specified
CPT/HCPCS: 36415; 74176; 80053; 80307; 83605; 83690; 85025; 99284; A9270; Q0162